=== PATIENT | female | born 1985 | race Asian ===

== ENCOUNTER 2019-08-27 11:56 | Emergency (ER) | payer SELFPAY ==
[~2019-08-27] VITALS: Ht 157.5 cm; Wt 61.0 kg
[2019-08-27] MEDS ORDERED: ACETAMINOPHEN 500 MG TABLET PO ONE (13:00)
[2019-08-27] MEDS ORDERED: BENZONATATE 100 MG CAPSULE PO ONE (13:00)
[2019-08-27 13:47] VITALS: BP 103/67
== END 2019-08-27 13:32 | disposition home or self-care (01) ==
LOC: EMS 11:56 → EDSEX 11:56 → EMS 13:32
DX: J06.9 Acute upper respiratory infection, unspecified (principal)